=== PATIENT | female | born 1955 | race Caucasian/White ===

== ENCOUNTER → 2016-11-29 | Outpatient (REF) ==
--- NOTE | 2016-11-29 13:00 | Diagnostic Imaging Report ---
Two views of the right humerus. INDICATION: Fall. FINDINGS: No fracture, dislocation or radiopaque foreign body. The proximal and distal joints appear grossly unremarkable. IMPRESSION: Unremarkable exam. Dictated by: Dictated on workstation # [id number]
--- NOTE | 2016-11-29 13:04 | Diagnostic Imaging Report ---
Two views of the thoracic spine. INDICATION: Fall. FINDINGS: There is mild left convexity scoliotic curvature at the thoracolumbar junction. The vertebral body heights are preserved. There is moderate disc height loss at mid thoracic vertebral levels with subchondral endplate sclerosis and anterior osteophytes likely degenerative related. Multilevel anterior osteophytes are noted. Surgical clips in the upper right abdomen noted. There is cardiomegaly. IMPRESSION: Scoliosis, degenerative changes. No compression fracture or malalignment seen. Dictated by: Dictated on workstation # [id number]
== END | disposition home or self-care (01) ==
LOC: OCC 11:47
PROVIDERS: ATTEND Nurse Practitioner Family
CPT/HCPCS: 72072; 73060

== ENCOUNTER 2016-12-06 08:32 | Outpatient (CLI) | payer OTHER ==
[~2016-12-06] VITALS: Ht 157.5 cm; Wt 106.6 kg
[2016-12-06] MEDS ORDERED: LIDOCAINE 2% 20 ML (XYLOCAINE) VIAL ONE (08:43)
[2016-12-06 08:45] VITALS: BP 141/72
[2016-12-06 09:25] VITALS: BP 142/83
--- NOTE | 2016-12-06 14:06 | Pain Medicine-Procedure ---
Procedure Pre-Op/Post-Op Diagnosis Diagnosis: spondylosis without myelopathy, lumbar Indications for Operation Low back pain Attending Surgeon Ana Procedure Date of Service: Dec 06, 2016 PROCEDURE: Radiofrequency Ablation (RFA) of right L3, L4, L5 and sacral ala (S1 ) Medial Branches NOTE: After obtaining written informed consent patient was taken to the procedure room. Pre-procedure blood pressure and pulse were stable and recorded in patients clinic chart. Patient was placed in a prone position and right lumbar area was prepped with chloraprep and draped in the usual sterile fashion. The skin over the sacral ala on the right was injected with 2% Lidocaine for local anesthesia. A 20-gauge RFA 100 mm needle with 10 mm active was inserted and advanced until it was touching the sacral ala in the area of the medial branch from S1. Next, in the oblique view, the right L3,L4 and L5 levels were identified. The skin over L3, L4 and L5 was then injected with 1% Lidocaine for local anesthesia. Next a 20-gauge RFA 100 mm needle with 10 mm active tip was inserted and advanced until it was touching the L3, L4 and L5 levels in the distrubution of the medial branches at each level making sure to not enter the neuroforamina. Following the placement of the needles sensory stimulation at 50 Hz and motor stimulation at 2 Hz was carried out. After confirming reproduction of the pain/sensation in the area of symptoms and the patient denying any motor movement, 0.5 mL's of 2% preservative free Lidocaine was injected at each level after negative aspiration. The RFA was then carried out in lesion mode. The settings were 80 C, and 90 seconds for lesion mode at each level. During the procedure no pain was reported in the extremities by the patient. After the procedure the needles were removed. Skin was cleaned and a sterile dressing was applied. Following the procedure the patient's vital signs were stable. The patient was discharged. RFA DATA: In chart Complications None ESTELA PATRICK MD Dec 06, 2016 2:06 pm
== END 2016-12-06 09:27 ==
LOC: CARD 08:32
PROVIDERS: ATTEND Pain Medicine Pain Medicine
DX: M47.816 Spondylosis without myelopathy or radiculopathy, lumbar region (principal); Z79.899 Other long term (current) drug therapy
CPT/HCPCS: 64635; 64636

== ENCOUNTER 2016-12-13 08:16 | Outpatient (CLI) | payer OTHER ==
[~2016-12-13] VITALS: Ht 157.5 cm; Wt 106.6 kg
[2016-12-13] MEDS ORDERED: LIDOCAINE 2% 20 ML (XYLOCAINE) VIAL ONE (08:19)
[2016-12-13 08:31] VITALS: BP 132/74
[2016-12-13 09:08] VITALS: BP 150/87
--- NOTE | 2016-12-13 12:51 | Pain Medicine-Procedure ---
Procedure Pre-Op/Post-Op Diagnosis Diagnosis: spondylosis without myelopathy, lumbar Indications for Operation Low back pain Attending Surgeon Ana Procedure Date of Service: Dec 13, 2016 PROCEDURE: Radiofrequency Ablation (RFA) of left L3, L4, L5 and sacral ala (S1 ) Medial Branches NOTE: After obtaining written informed consent patient was taken to the procedure room. Pre-procedure blood pressure and pulse were stable and recorded in patients clinic chart. Patient was placed in a prone position and left lumbar area was prepped with chloraprep and draped in the usual sterile fashion. The skin over the sacral ala on the left was injected with 2% Lidocaine for local anesthesia. A 20-gauge RFA 100 mm needle with 10 mm active was inserted and advanced until it was touching the sacral ala in the area of the medial branch from S1. Next, in the oblique view, the left L3,L4 and L5 levels were identified. The skin over L3, L4 and L5 was then injected with 1% Lidocaine for local anesthesia. Next a 20-gauge RFA 100 mm needle with 10 mm active tip was inserted and advanced until it was touching the L3, L4 and L5 levels in the distrubution of the medial branches at each level making sure to not enter the neuroforamina. Following the placement of the needles sensory stimulation at 50 Hz and motor stimulation at 2 Hz was carried out. After confirming reproduction of the pain/sensation in the area of symptoms and the patient denying any motor movement, 0.5 mL's of 2% preservative free Lidocaine was injected at each level after negative aspiration. The RFA was then carried out in lesion mode. The settings were 80 C, and 90 seconds for lesion mode at each level. During the procedure no pain was reported in the extremities by the patient. After the procedure the needles were removed. Skin was cleaned and a sterile dressing was applied. Following the procedure the patient's vital signs were stable. The patient was discharged. RFA DATA: In chart Complications None ESTELA PATRICK MD Dec 13, 2016 12:50 pm
== END 2016-12-13 09:09 | disposition home or self-care (01) ==
LOC: CARD 08:16
PROVIDERS: ATTEND Pain Medicine Pain Medicine
DX: M47.816 Spondylosis without myelopathy or radiculopathy, lumbar region (principal); Z79.899 Other long term (current) drug therapy
CPT/HCPCS: 64635; 64636

== ENCOUNTER → 2017-01-13 | Outpatient (CLI) | payer OTHER ==
--- NOTE | 2017-01-13 18:41 | Diagnostic Imaging Report ---
INDICATION: A 61-year-old female with scoliosis, back pain. COMPARISONS: 11/29/2016. FINDINGS: AP and lateral views of the thoracic spine show some very mild gradual leftward curvature of the lower thoracic and upper lumbar spine. The vertebral body heights appear well maintained. There are some marginal osteophytes with some endplate sclerosis at multiple levels. These are felt to be chronic and similar to the previous study. No evidence of acute compression suggested by plain radiographic criteria. There is no subluxation. IMPRESSION: 1. Mild gradual leftward scoliotic curvature of the lower thoracic and upper lumbar spine, stable. 2. Degenerative changes in the thoracic spine with endplate sclerosis and marginal osteophytes, but no definite evidence of acute compression. If symptoms warrant, an MRI may be of further value. Dictated by: Dictated on workstation # [id number]
== END ==
LOC: RAD 16:48
PROVIDERS: ATTEND Pain Medicine Pain Medicine
DX: M54.6 Pain in thoracic spine (principal)
CPT/HCPCS: 72070

== ENCOUNTER → 2017-01-22 | Outpatient (CLI) | payer OTHER | LOC: RT 15:09 | PROVIDERS: ATTEND Nurse Practitioner Family | DX: R06.02 Shortness of breath (principal) | CPT/HCPCS: 94060; 94726; 94729 ==

== ENCOUNTER 2017-01-24 10:34 | Outpatient (CLI) | payer OTHER ==
[~2017-01-24] VITALS: Ht 157.5 cm; Wt 106.6 kg
[2017-01-24] MEDS ORDERED: LIDOCAINE 1% INJ 20 ML (XYLOCAINE) VIAL ONE (10:43)
[2017-01-24] MEDS ORDERED: TRIAMCINOLONE ACET (KENALOG-40) 40 MG/ML 1 ML VIAL ONE (10:43)
[2017-01-24] MEDS ORDERED: BUPIVACAINE 0.5% 30 ML (SENSORCAINE) VIAL ONE (10:43)
[2017-01-24 10:54] VITALS: BP 176/93
[2017-01-24 11:49] VITALS: BP 154/85
--- NOTE | 2017-01-24 12:16 | Pain Medicine-Procedure ---
Procedure Pre-Op/Post-Op Diagnosis Diagnosis: Spondylosis without myelopathy, thoracic Indications for Operation Mid back pain Attending Surgeon Ana Procedure Date of Service: Jan 24, 2017 PROCEDURE: Bilateral thoracic medial branch block at T6 to T9 under fluoroscopic guidance. PROCEDURE DETAILS: After obtaining an informed consent from the patient, the patient's chart was reviewed. The patient was brought to the procedure room and placed in a prone position. The back was prepped with antiseptic solution, and under fluoroscopic guidance the junction of the superior articular process and transverse process on the right at T6 to T9 was identified. 0.5 cc of 1% Lidocaine was used to anesthetize the skin. A 25 gauge 3.5 inch spinal needle was inserted through the skin under fluoroscopic guidance until it came in touch with the bone at the junction between the superior articular process and transverse process at each level. The exact steps were repeated for the left side. After needle aspiration,80 mg of kenalog total was injected in equal alliquots followed by 0.5 cc of 0.5% bupivacaine at each. The patient tolerated the procedure well. The needles were flushed and removed, and a Band- Aide was applied. Complications None ESTELA PATRICK MD Jan 24, 2017 12:16 pm
== END 2017-01-24 11:52 | disposition home or self-care (01) ==
LOC: CARD 10:34
PROVIDERS: ATTEND Pain Medicine Pain Medicine
DX: M47.814 Spondylosis without myelopathy or radiculopathy, thoracic region (principal); Z79.899 Other long term (current) drug therapy
CPT/HCPCS: 64490; 64491; 64492

== ENCOUNTER 2019-01-29 20:53 | Outpatient (CLI) | payer MEDICARE | END 2019-01-30 05:50 | disposition home or self-care (01) | LOC: SLEEP 20:53 | PROVIDERS: ATTEND Nurse Practitioner Family | DX: G47.33 Obstructive sleep apnea (adult) (pediatric) (principal); R09.02 Hypoxemia; J30.1 Allergic rhinitis due to pollen; R06.00 Dyspnea, unspecified | CPT/HCPCS: 95811 ==

== ENCOUNTER → 2019-03-26 | Outpatient (CLI) | payer MEDICARE ==
[~2019-03-26] MED LIST: RT-ALBUTEROL SULF 2.5 MG/3 ML PRE-MIX VIAL INH ONE; RT-ALBUTEROL SULF 2.5 MG/3 ML PRE-MIX VIAL ONE
== END ==
LOC: RT 14:27
PROVIDERS: ATTEND Internal Medicine Critical Care Medicine
DX: G47.33 Obstructive sleep apnea (adult) (pediatric) (principal); R09.02 Hypoxemia; J45.909 Unspecified asthma, uncomplicated; R06.00 Dyspnea, unspecified
CPT/HCPCS: 94060; 94726; 94729

== ENCOUNTER → 2019-10-20 | Outpatient (CLI) | payer MEDICARE ==
[~2019-10-20] MED LIST changes: +CATHETER FLUSH 10 ML SYR IV PRN; +HOLD METFORMIN - RECEIVED CONTRAST 20 ML VIAL IV SCH; +IOHEXOL 350 MG/ML 150 ML (OMNIPAQUE 350) VIAL IV ONE; +NS 100 ML (IVPB) BAG IV ONE; -RT-ALBUTEROL SULF 2.5 MG/3 ML PRE-MIX VIAL INH ONE; -RT-ALBUTEROL SULF 2.5 MG/3 ML PRE-MIX VIAL ONE
[2019-10-20 11:18] LABS: BUN/CREATININE RATIO 15; CREATININE SERUM 0.82 MG/DL (0.60-1.30); GFR ESTIMATED > 60
--- NOTE | 2019-10-20 12:06 | Diagnostic Imaging Report ---
PROCEDURE: US Venous Lower Ext Og. TECHNIQUE: Multiple real-time grayscale images were obtained over the lower extremities in various projections, bilaterally. Additional duplex Doppler and color Doppler images were also obtained. INDICATION: Leg swelling. There is no evidence of right or left lower extremity DVT. Both lower extremity deep venous systems demonstrate normal compressibility with normal response to augmentation and Valsalva. No fluid collection or mass is seen. IMPRESSION: No evidence of right or left lower extremity DVT. Dictated by: Dictated on workstation # [id number]
== END ==
LOC: RAD 10:30
PROVIDERS: ATTEND Nurse Practitioner Family
DX: M79.89 Other specified soft tissue disorders (principal); G47.33 Obstructive sleep apnea (adult) (pediatric); R06.00 Dyspnea, unspecified
CPT/HCPCS: 36415; 82565; 84520; 93970

== ENCOUNTER → 2019-10-25 | Outpatient (CLI) | payer MEDICARE ==
--- NOTE | 2019-10-25 19:32 | Diagnostic Imaging Report ---
PROCEDURE: CT angiography of the chest with contrast. TECHNIQUE: Multiple contiguous axial images were obtained through the chest after uneventful bolus administration of intravenous contrast. 3D reconstructed CTA MIP acquisitions were also performed. Auto Exposure Controls were utilized during the CT exam to meet ALARA standards for radiation dose reduction. DATE: October 25, 2019. COMPARISON: None. INDICATION: 64-year-old female, dyspnea, shortness of breath. FINDINGS: There is no identified pulmonary nodule or lung mass. There is mosaic lung attenuation which may reflect small airways disease and air trapping and/or chronic vascular etiology. There are very mild linear opacities in the lingula consistent with atelectasis and/or scarring. There is no additional focal airspace consolidation. There is no pneumothorax. There is no pleural effusion. The central airways are patent. There is no identified pulmonary embolus. The main pulmonary artery is normal in caliber. The heart is not enlarged. There is no pericardial effusion. There are atherosclerotic calcifications. There is no identified abnormally enlarged mediastinal, hilar, or axillary lymph node which meets CT size criteria for adenopathy. The patient is status post cholecystectomy. There are procedural related changes at the level of the proximal stomach. There is a small hiatal hernia. There are multilevel degenerative changes of the spine. There is no identified acute bony abnormality. IMPRESSION: CT CHEST. 1. No identified acute cardiopulmonary abnormality. 2. Mild mosaic lung attenuation which may relate to chronic small airways disease and air trapping or chronic vascular etiology. Main pulmonary artery diameter is within normal limits. Dictated by: Dictated on workstation # [id number]
== END ==
LOC: RAD 17:08
PROVIDERS: ATTEND Nurse Practitioner Family
DX: G47.33 Obstructive sleep apnea (adult) (pediatric) (principal); M79.89 Other specified soft tissue disorders; J98.4 Other disorders of lung
CPT/HCPCS: 71275

== ENCOUNTER → 2020-11-29 | Outpatient (CLI) | payer MEDICARE ==
[~2020-11-29] MED LIST changes: -CATHETER FLUSH 10 ML SYR IV PRN; -HOLD METFORMIN - RECEIVED CONTRAST 20 ML VIAL IV SCH; -IOHEXOL 350 MG/ML 150 ML (OMNIPAQUE 350) VIAL IV ONE; -NS 100 ML (IVPB) BAG IV ONE; +RT-ALBUTEROL SULF 2.5 MG/3 ML PRE-MIX VIAL INH ONE
== END ==
LOC: RT 15:30
PROVIDERS: ATTEND Nurse Practitioner Family
DX: R06.00 Dyspnea, unspecified (principal)
CPT/HCPCS: 94060; 94726; 94729

== ENCOUNTER → 2022-06-13 | Outpatient (CLI) | payer MEDICARE ==
--- NOTE | 2022-06-13 10:59 | Diagnostic Imaging Report ---
INDICATION: ASTHMA shortness of air. COMPARISON: 11/20/2020 FINDINGS: Frontal and lateral views of the chest demonstrate normal heart size and pulmonary vascularity. The lungs are clear. There are no signs of infiltrate, pleural effusions or pneumothoraces. The visualized osseous structures show no acute abnormalities. IMPRESSION: 1. No acute process. No signs of infiltrates, effusions or pneumothoraces. Dictated by: Dictated on workstation # [id number]
== END ==
LOC: RT 08:57
PROVIDERS: ATTEND Internal Medicine Critical Care Medicine
DX: J45.909 Unspecified asthma, uncomplicated (principal)
CPT/HCPCS: 71046; 94060; 94621; 94726; 94729

== ENCOUNTER → 2023-09-26 | Outpatient (CLI) | payer MEDICARE ==
[~2023-09-26] VITALS: Ht 152.4 cm; Wt 108.4 kg
== END | disposition home or self-care (01) ==
LOC: PREOP 10:21
PROVIDERS: ATTEND Specialist
DX: Z01.818 Encounter for other preprocedural examination (principal)

== ENCOUNTER 2023-10-03 10:22 | Day surgery (SDC) | payer MEDICARE ==
[~2023-10-03] VITALS: Ht 152.4 cm; Wt 108.4 kg
[2023-10-03] MEDS ORDERED: POVIDONE IODINE OPHTH SOLN 5% 30 ML OP ONE (11:00)
[2023-10-03] MEDS ORDERED: LIDOCAINE PF 1% 2 ML VIAL IR PRN (11:00)
[2023-10-03] MEDS ORDERED: TIMOLOL 0.5% (CATARACTS) 0.3 ML BTL OU PRN (11:00)
[2023-10-03] MEDS: TETRACAINE 0.5% OPHTH SOLN 5 ML BTL OU PRN ×3 (11:18→11:35)
[2023-10-03 11:20] VITALS: BP 135/73
[2023-10-03] MEDS: PHENYLEPHRINE 10% OPHTH SOLN 5 ML BTL OU SCH ×2 (11:27→11:35)
[2023-10-03] MEDS: TROPICAMIDE 1% OPH SOLN (MYDRIACYL) 15 ML BTL OP SCH ×2 (11:27→11:35)
[2023-10-03] MEDS ORDERED: MIDAZOLAM INJ 2 MG/2 ML VIAL ONE (12:04)
--- NOTE | 2023-10-03 12:24 | Ophthalmologist Pre-Op Note ---
Pre-Operative Progress Note H&P Reviewed The H&P was reviewed, patient examined and no changes noted. Date H&P Reviewed: Oct 03, 2023 Time H&P Reviewed: 12:05 Pre-Op Dx Cataract, Right Eye SULMA ALCANTAR MD Oct 03, 2023 12:24
--- NOTE | 2023-10-03 12:26 | Ophthalmology Operative Report ---
Cataract removal/placement IOL PREOPERATIVE DIAGNOSIS: Cataract Right Eye POSTOPERATIVE DIAGNOSIS: Cataract Right Eye PROCEDURE: Cataract removal and placement of posterior chamber implant, right eye SURGEON: Dillan Alcantar ANESTHESIA: Topical with sedation COMPLICATIONS: None ESTIMATED BLOOD LOSS: Minimal DESCRIPTION OF PROCEDURE: After proper informed consent was obtained, the patient, a 68 female, was taken to the Operating Room and the right eye was anesthetized with tetracaine. The right eye was then prepped and draped in the usual manner. A wire lid speculum was placed. A paracentesis was made at the left hand position. Preservative free lidocaine was injected into the anterior chamber followed by viscoelastic. A clear corneal incision was made in the temporal position. A capsulorrhexis was preformed and the central nuclear and cortical material were removed. The posterior capsule was polished and Bj 18.5 CNA0T0 IOL was placed into the capsular bag. The residual viscoelastic was aspirated and balanced saline solution was injected into the anterior chamber. The wound was checked and found to be water tight. The patient tolerated the procedure well without complications. DILLAN ALCANTAR MD Oct 03, 2023 12:25
[2023-10-03 12:43] VITALS: BP 129/74
--- NOTE | 2023-10-03 14:33 | Anesthesia-General Post-Op ---
MAC Patient Condition Mental Status/LOC: Same as Preop Cardiovascular: Satisfactory Nausea/Vomiting: Absent Respiratory: Satisfactory Pain: Controlled Complications: Absent Post Op Complications Complications None Follow Up Care/Instructions Patient Instructions None needed. Anesthesiology Discharge Order Discharge Order Patient is doing well, no complaints, stable vital signs, no apparent adverse anesthesia problems. No complications reported per nursing. LEONILA KHAN CRNA Oct 03, 2023 14:33
== END 2023-10-03 12:44 | disposition home or self-care (01) ==
LOC: SDC 10:22
PROVIDERS: ATTEND Specialist
DX: H25.9 Unspecified age-related cataract (principal); E66.9 Obesity, unspecified; G47.33 Obstructive sleep apnea (adult) (pediatric); Z68.42 Body mass index [BMI] 45.0-49.9, adult
CPT/HCPCS: 66984; V2632

== ENCOUNTER 2023-10-21 10:05 | Outpatient (CLI) | payer MEDICARE ==
[~2023-10-21] VITALS: Ht 152.4 cm; Wt 108.0 kg
[2023-10-21] MEDS ORDERED: ESCI20TA39 PO (13:17)
[2023-10-21] MEDS ORDERED: FLUT12AE4 PUFF (13:17)
[2023-10-21] MEDS ORDERED: GBPN600T PO (13:17)
[2023-10-21] MEDS ORDERED: ATOR40TA70 PO (13:17)
[2023-10-21] MEDS ORDERED: MAGN400T50 PO (13:17)
[2023-10-21] MEDS ORDERED: BETA1TAB15 PO (13:17)
[2023-10-21] MEDS ORDERED: TRAZ150T72 PO (13:17)
[2023-10-21] MEDS ORDERED: ASPI-1238 PO (13:17)
[2023-10-21] MEDS ORDERED: CELE-91 PO (13:17)
[2023-10-21] MEDS ORDERED: ZINC50TA51 PO (13:17)
[2023-10-21] MEDS ORDERED: LEVO137C4 PO (13:17)
[2023-10-21] MEDS ORDERED: MONT-40 PO (13:17)
[2023-10-21] MEDS ORDERED: CHOL500050 PO (13:17)
[2023-10-21] MEDS ORDERED: FERR-84 PO (13:17)
[2023-10-21] MEDS ORDERED: HYDR-700 PO (13:17)
[2023-10-21] MEDS ORDERED: CNC1KV IM (13:17)
[2023-10-21] MEDS ORDERED: CYCL10TA25 PO (13:17)
[2023-10-21] MEDS ORDERED: VITA1TAB17 PO (13:17)
[2023-10-21] MEDS ORDERED: FOLI0.4T6 PO (13:17)
[2023-10-21] MEDS ORDERED: GABA300S3 PO (13:17)
[2023-10-21] MEDS ORDERED: LAMO200T5 PO (13:17)
[2023-10-21] MEDS ORDERED: OXYC10TA7 PO (13:17)
[2023-10-21] MEDS ORDERED: CHOL10004 PO (13:17)
[2023-10-21] MEDS ORDERED: FURO20TA4 PO (13:17)
== END 2023-10-21 13:26 | disposition home or self-care (01) ==
LOC: PREOP 10:05
PROVIDERS: ATTEND Specialist
DX: Z01.818 Encounter for other preprocedural examination (principal)

== ENCOUNTER 2023-10-24 07:13 | Day surgery (SDC) | payer MEDICARE ==
[~2023-10-24] VITALS: Ht 152 cm; Wt 108.0 kg
[~2023-10-24 07:13] MED LIST changes: +ASPI-1238 PO; +ATOR40TA70 PO; +BETA1TAB15 PO; +CELE-91 PO; +CHOL10004 PO; +CHOL500050 PO; +CNC1KV IM; +CYCL10TA25 PO; +ESCI20TA39 PO; +FERR-84 PO; +FLUT12AE4 PUFF; +FOLI0.4T6 PO; +FURO20TA4 PO; +GABA300S3 PO; +GBPN600T PO; +HYDR-700 PO; +LAMO200T5 PO; +LEVO137C4 PO; +MAGN400T50 PO; +MONT-40 PO; +OXYC10TA7 PO; -RT-ALBUTEROL SULF 2.5 MG/3 ML PRE-MIX VIAL INH ONE; +TRAZ150T72 PO; +VITA1TAB17 PO; +ZINC50TA51 PO
[2023-10-24] MEDS ORDERED: MIDAZOLAM INJ 2 MG/2 ML VIAL ONE (07:16)
[2023-10-24 07:45] VITALS: BP 134/56
[2023-10-24] MEDS ORDERED: TIMOLOL 0.5% (CATARACTS) 0.3 ML BTL OU PRN (07:45)
[2023-10-24] MEDS ORDERED: MOXIFLOXACIN OPHTH SOLN 5 MG/ML 0.5 ML SYRINGE OP ONE (07:45)
[2023-10-24] MEDS ORDERED: POVIDONE IODINE OPHTH SOLN 5% 30 ML OP ONE (07:45)
[2023-10-24] MEDS ORDERED: LIDOCAINE PF 1% 2 ML VIAL IR PRN (07:45)
[2023-10-24] MEDS: TETRACAINE 0.5% OPHTH SOLN 5 ML BTL OU PRN ×4 (07:52→08:07)
[2023-10-24] MEDS: TROPICAMIDE 1% OPH SOLN (MYDRIACYL) 15 ML BTL OP SCH ×3 (07:57→08:07)
[2023-10-24] MEDS: PHENYLEPHRINE 10% OPHTH SOLN 5 ML BTL OU SCH ×3 (07:57→08:07)
--- NOTE | 2023-10-24 08:25 | Ophthalmologist Pre-Op Note ---
Pre-Operative Progress Note H&P Reviewed The H&P was reviewed, patient examined and no changes noted. Date H&P Reviewed: Oct 24, 2023 Time H&P Reviewed: 08:25 Pre-Op Dx Cataract, Left Eye SULMA ALCANTAR MD Oct 24, 2023 08:25
--- NOTE | 2023-10-24 08:46 | Ophthalmology Operative Report ---
Cataract removal/placement IOL PREOPERATIVE DIAGNOSIS: Cataract Left Eye POSTOPERATIVE DIAGNOSIS: Cataract Left Eye PROCEDURE: Cataract removal and placement of posterior chamber implant, left eye SURGEON: Dillan Alcantar ANESTHESIA: Topical with sedation COMPLICATIONS: None ESTIMATED BLOOD LOSS: Minimal DESCRIPTION OF PROCEDURE: After proper informed consent was obtained, the patient, a 68 female, was taken to the Operating Room and the left eye was anesthetized with tetracaine. The left eye was then prepped and draped in the usual manner. A wire lid speculum was placed. A paracentesis was made at the left hand position. Preservative free lidocaine was injected into the anterior chamber followed by viscoelastic. A clear corneal incision was made in the temporal position. A capsulorrhexis was preformed and the central nuclear and cortical material were removed. The posterior capsule was polished and an Bj 19.0 CNA0T0 was placed into the capsular bag. The residual viscoelastic was aspirated and balanced saline solution was injected into the anterior chamber. Moxifloxacin was injected into the anterior chamber. The wound was checked and found to be water tight. The patient tolerated the procedure well without complications. DILLAN ALCANTAR MD Oct 24, 2023 08:46
[2023-10-24 08:57] VITALS: BP 131/67
--- NOTE | 2023-10-24 12:46 | Anesthesia-General Post-Op ---
MAC Patient Condition Mental Status/LOC: Same as Preop Cardiovascular: Satisfactory Nausea/Vomiting: Absent Respiratory: Satisfactory Pain: Controlled Complications: Absent Post Op Complications Complications None Follow Up Care/Instructions Patient Instructions None needed. Anesthesiology Discharge Order Discharge Order Patient was doing well after the procedure with no complaints, stable vital signs, no apparent adverse anesthesia problems. No complications reported per nursing. PRERNA CRONIN DO Oct 24, 2023 12:46
== END 2023-10-24 09:01 | disposition home or self-care (01) ==
LOC: SDC 07:13
PROVIDERS: ATTEND Specialist
DX: H25.9 Unspecified age-related cataract (principal); G47.33 Obstructive sleep apnea (adult) (pediatric); E66.9 Obesity, unspecified; Z68.42 Body mass index [BMI] 45.0-49.9, adult
CPT/HCPCS: 66984; V2632